=== PATIENT | male | born 1975 | race Caucasian/White ===

== ENCOUNTER 2022-10-28 00:06 | Emergency (ER) | payer OTHER ==
[2022-10-28] MEDS ORDERED: Doxycycline 100 MG Cap PO ONE (01:08)
== END 2022-10-28 01:20 | disposition home or self-care (01) ==
LOC: JP.ED 00:06
DX: S31.825A Open bite of left buttock, initial encounter (principal); W57.XXXA Bitten or stung by nonvenomous insect and other nonvenomous arthropods, initial encounter
CPT/HCPCS: 99281; A9270